=== PATIENT | male | born 1935 | race Two or more races ===

== ENCOUNTER 2022-01-13 18:54 | Emergency (ER) | payer MEDICAID, OTHER ==
[~2022-01-13] VITALS: Ht 170.2 cm; Wt 64.0 kg
[2022-01-14] VITALS: BP 145/60
== END 2022-01-14 01:05 | disposition home or self-care (01) ==
LOC: ER 18:54
DX: S09.8XXA Other specified injuries of head, initial encounter (principal); I10 Essential (primary) hypertension; W01.198A Fall on same level from slipping, tripping and stumbling with subsequent striking against other object, initial encounter; Y93.89 Activity, other specified; Y92.9 Unspecified place or not applicable
CPT/HCPCS: 70486; 99284